=== PATIENT | female | born 1955 | race Caucasian/White ===

== ENCOUNTER 2021-08-26 10:52 | Inpatient (IN) | payer OTHER ==
--- NOTE | 2021-08-26 11:04 | ED ---
CPR HPI - General Stated Complaint: cardiac Time Seen by Provider: 08/26/21 10:52 Source: EMS, RN notes reviewed Mode of arrival: EMS - History of Present Illness Initial Comments: 66-year-old female with a history of alcoholism with associated stigmata is currently residing in a assisted who was found unresponsive and asystolic cardiac arrest. EMS was called she was found to be in asystole CPR and ACLS protocol was begun which included CPR including chest compressions total of 5 epinephrines with return of spontaneous circulation after approximately 25 minutes of effort. Patient was brought in priority one by EMS. No known history of cardiac disease. Patient does have a history of encephalopathy also. Patient presented unresponsive with a #[address] Currently stable pulse and blood pressures. Patient also was recently diagnosed with Covid 19 Complaint: found unresponsive - Related Data Home Medications Medication Instructions Recorded Confirmed Cyanocobalamin (Vitamin B-12) 1,000 mcg PO DAILY@0800 08/26/21 08/26/21 [Vitamin B-12] Docusate [Colace] 100 mg PO BID@0800,2000 08/26/21 08/26/21 Enoxaparin Sodium 30 mg SQ DAILY@0800 08/26/21 08/26/21 Folic Acid 1 mg PO DAILY@0700 08/26/21 08/26/21 Magnesium Oxide [Mag-Ox] 400 mg PO BID@0800,1600 08/26/21 08/26/21 Mighty Shakes 120 ml PO BID@1200,1400 08/26/21 08/26/21 Multivitamins, Thera [Multivitamin 1 tab PO DAILY@0808/26/21 08/26/21 (formulary)] Polyethylene Glycol 3350 [Miralax] 17 gm PO DAILY@0800 08/26/21 08/26/21 Thiamine [Vitamin B-1] 100 mg PO DAILY@0800 08/26/21 08/26/21 Allergies Allergy/AdvReac Type Severity Reaction Status Date / Time No Known Allergies Allergy Verified 08/26/21 11:17 Review of Systems ROS Statement: Those systems with pertinent positive or pertinent negative responses have been documented in the HPI. ROS Other: All systems not noted in ROS Statement are negative. Limitations: ROS unobtainable due to patients medical condition General Exam - General Exam Comments Initial Comments: Well-developed frail-appearing female unresponsive endotracheal tube in place with assisted ventilations. Limitations: altered mental status, physical limitation General appearance: other (Unresponsive) Head exam: Present: atraumatic Eye exam: Present: other (Pupils approximately 3 mm and sluggish) ENT exam: Present: other (October 06 oral tracheal tube in place) Neck exam: Present: other (Bilateral external jugular venous access noted no JVD or bruits) Respiratory exam: Present: decreased breath sounds, other (Anterior chest wall midsternal with skin slippages from CPR efforts.) Cardiovascular Exam: Present: regular rate, normal rhythm, normal heart sounds. Absent: systolic murmur, diastolic murmur, rubs, gallop, clicks GI/Abdominal exam: Present: soft, normal bowel sounds. Absent: distended, tenderness, guarding, rebound, rigid Rectal exam: Present: deferred Extremities exam: Present: other (And poor turgor wounds in the lower extremities) Course Vital Signs 08/26/21 08/26/21 08/26/21 10:54 11:31 11:43 Temperature 91.0 F L 90.5 F L Pulse Rate 89 71 74 Respiratory 16 16 16 Rate Blood Pressure 108/78 41/28 72/52 O2 Sat by Pulse 100 93 L Oximetry 08/26/21 08/26/21 08/26/21 12:18 12:35 12:45 Temperature 91 F L Pulse Rate 67 98 101 H Respiratory 16 16 16 Rate Blood Pressure 132/91 73/60 103/88 O2 Sat by Pulse 100 95 95 Oximetry - Reevaluation(s) Reevaluation #1: 08/26/21 13:11 I did discuss the events with the patient's family members or present at this time she will remain a full code advanced directives are unclear at this time. Medical Decision Making - Medical Decision Making Reevaluation the patient her blood pressure is improved after pressors started IV fluids given. CT appears be negative for acute processes x-ray shows evidence of aspiration. Case discussed with Dr. Davalos as well as Dr. Monge patient will be placed in the ICU doctor El[place] has been notified of the patient's admission and did review the EKG. At this time intervention not indicated initial troponin negative. - Lab Data Result diagrams: 08/26/21 11:09 08/26/21 11:09 Lab Results 08/26/21 08/26/21 08/26/21 Range/Units 11:09 11:09 11:09 WBC 4.4 (3.8-10.6) k/uL RBC 2.64 L (3.80-5.40) m/uL Hgb 9.6 L (11.4-16.0) gm/dL Hct 29.6 L (34.0-46.0) % MCV 112.3 H (80.0-100.0) fL MCH 36.3 H (25.0-35.0) pg MCHC 32.3 (31.0-37.0) g/dL RDW 13.5 (11.5-15.5) % Plt Count 88 L (150-450) k/uL MPV 12.8 Neutrophils % Not Reportable Neutrophils % (Manual) 57 % Band Neuts % (Manual) 17 % Lymphocytes % Not Reportable Lymphocytes % (Manual) 18 % Monocytes % Not Reportable Monocytes % (Manual) 4 % Eosinophils % Not Reportable Basophils % Not Reportable Metamyelocytes % 5 % Myelocytes % 1 % Neutrophils # Not Reportable Neutrophils # (Manual) 3.20 (1.3-7.7) k/uL Lymphocytes # Not Reportable Lymphocytes # (Manual) 0.79 L (1.0-4.8) k/uL Monocytes # Not Reportable Monocytes # (Manual) 0.18 (0-1.0) k/uL Eosinophils # Not Reportable Basophils # Not Reportable Metamyelocytes # (Man) 0.22 H (0) k/uL Myelocytes # (Manual) 0.04 H (0) k/uL Nucleated RBCs 0 (0-0) /100 WBC Manual Slide Review Performed Poikilocytosis (manual Present Macrocytosis Marked A Crenated Cell Present PT 12.1 H (9.0-12.0) sec INR 1.2 H (<1.2) APTT 47.1 H (22.0-30.0) sec Sodium 137 (137-145) mmol/L Potassium 3.2 L (3.5-5.1) mmol/L Chloride 107 (98-107) mmol/L Carbon Dioxide 18 L (22-30) mmol/L Anion Gap 12 mmol/L BUN 13 (7-17) mg/dL Creatinine 0.44 L (0.52-1.04) mg/dL Est GFR (CKD-EPI)AfAm >90 (>60 ml/min/1.73 sqM) Est GFR (CKD-EPI)NonAf >90 (>60 ml/min/1.73 sqM) Glucose 158 H (74-99) mg/dL Calcium 7.2 L (8.4-10.2) mg/dL Magnesium 1.8 (1.6-2.3) mg/dL Total Bilirubin 0.3 (0.2-1.3) mg/dL AST 91 H (14-36) U/L ALT 49 H (4-34) U/L Alkaline Phosphatase 192 H (38-126) U/L Creatine Kinase 121 (30-135) U/L Troponin I (0.000-0.034) ng/mL NT-Pro-B Natriuret Pep pg/mL Total Protein 3.3 L (6.3-8.2) g/dL Albumin 1.3 L (3.5-5.0) g/dL Lipase 59 (23-300) U/L Coronavirus (PCR) (Not Detectd) 08/26/21 08/26/21 08/26/21 Range/Units 11:09 11:09 11:55 WBC (3.8-10.6) k/uL RBC (3.80-5.40) m/uL Hgb (11.4-16.0) gm/dL Hct (34.0-46.0) % MCV (80.0-100.0) fL MCH (25.0-35.0) pg MCHC (31.0-37.0) g/dL RDW (11.5-15.5) % Plt Count (150-450) k/uL MPV Neutrophils % Neutrophils % (Manual) % Band Neuts % (Manual) % Lymphocytes % Lymphocytes % (Manual) % Monocytes % Monocytes % (Manual) % Eosinophils % Basophils % Metamyelocytes % % Myelocytes % % Neutrophils # Neutrophils # (Manual) (1.3-7.7) k/uL Lymphocytes # Lymphocytes # (Manual) (1.0-4.8) k/uL Monocytes # Monocytes # (Manual) (0-1.0) k/uL Eosinophils # Basophils # Metamyelocytes # (Man) (0) k/uL Myelocytes # (Manual) (0) k/uL Nucleated RBCs (0-0) /100 WBC Manual Slide Review Poikilocytosis (manual Macrocytosis Crenated Cell PT (9.0-12.0) sec INR (<1.2) APTT (22.0-30.0) sec Sodium (137-145) mmol/L Potassium (3.5-5.1) mmol/L Chloride (98-107) mmol/L Carbon Dioxide (22-30) mmol/L Anion Gap mmol/L BUN (7-17) mg/dL Creatinine (0.52-1.04) mg/dL Est GFR (CKD-EPI)AfAm (>60 ml/min/1.73 sqM) Est GFR (CKD-EPI)NonAf (>60 ml/min/1.73 sqM) Glucose (74-99) mg/dL Calcium (8.4-10.2) mg/dL Magnesium (1.6-2.3) mg/dL Total Bilirubin (0.2-1.3) mg/dL AST (14-36) U/L ALT (4-34) U/L Alkaline Phosphatase (38-126) U/L Creatine Kinase (30-135) U/L Troponin I <0.012 (0.000-0.034) ng/mL NT-Pro-B Natriuret Pep 1110 pg/mL Total Protein (6.3-8.2) g/dL Albumin (3.5-5.0) g/dL Lipase (23-300) U/L Coronavirus (PCR) Detected A (Not Detectd) - Radiology Data Radiology results: report reviewed (UG shows evidence of aspiration please see complete report), image reviewed Critical Care Time Critical Care Time: Yes Total Critical Care Time: 44 Critical Care Time: Critical care time includes initial presentation with history physical x-rays multiple reevaluation the patient discussed with paramedics on arrival discussion with the admitting physician discussed with cardiology discussion with critical care medicine. Documentation the above admission orders. Disposition Clinical Impression: Cardiac arrest, Signs of return of spontaneous circulation, SARS-CoV-2 positive, Aspiration pneumonitis, Hypotensive episode, Hypokalemia, Encephalopathy acute, Respiratory failure Disposition: ADMITTED IP TO THIS HOSP Condition: Critical Referrals: Danny Dominique MD [Primary Care Provider] - 1-2 days
[2021-08-26 11:33] LABS: AST 91 U/L (14-36); African American GFR (CKD) >90 (>60 ml/min/1.73 sqM); Albumin 1.3 g/dL (3.5-5.0); Alkaline Phosphatase 192 U/L (38-126); Anion Gap 12 mmol/L; Blood Urea Nitrogen 13 mg/dL (7-17); Calcium 7.2 mg/dL (8.4-10.2); Carbon Dioxide 18 mmol/L (22-30); Chloride 107 mmol/L (98-107); Creatine Kinase 121 U/L (30-135); Glucose 158 mg/dL (74-99); Lipase 59 U/L (23-300); Magnesium 1.8 mg/dL (1.6-2.3); Non-African American GFR(CKD) >90 (>60 ml/min/1.73 sqM); Potassium 3.2 mmol/L (3.5-5.1); Sodium 137 mmol/L (137-145); Total Bilirubin 0.3 mg/dL (0.2-1.3); Total Protein 3.3 g/dL (6.3-8.2)
[2021-08-26] MEDS ORDERED: SODIUM CHLORIDE 0.9% 1,000 ML IV STA ×2 (11:35→11:41)
[2021-08-26 11:40] LABS: ALT 49 U/L (4-34)
[2021-08-26] MEDS: NOREPINEPHRINE 4 MG in SODIUM CHLORIDE 0.9% 250 ML IV ONE ×3 (11:40→16:30)
[2021-08-26 11:52] LABS: HCT 29.6 % (34.0-46.0); HGB 9.6 gm/dL (11.4-16.0); MCH 36.3 pg (25.0-35.0); MCHC 32.3 g/dL (31.0-37.0); MCV 112.3 fL (80.0-100.0); Macrocytosis Marked; Mean Platelet Volume 12.8; RBC 2.64 m/uL (3.80-5.40); RDW 13.5 % (11.5-15.5); WBC 4.4 k/uL (3.8-10.6)
[2021-08-26 12:17] LABS: INR 1.2 (<1.2); Partial Thromboplastin Time 47.1 sec (22.0-30.0); Prothrombin Time 12.1 sec (9.0-12.0)
[2021-08-26 12:25] LABS: Platelet Count 88 k/uL (150-450)
[2021-08-26 12:30] LABS: Band Neutrophils % 17 %; Lymphocytes # (M) 0.79 k/uL (1.0-4.8); Metamyelocytes # (M) 0.22 k/uL (0); Metamyelocytes % 5 %; Monocytes # (M) 0.18 k/uL (0-1.0); Myelocytes # (M) 0.04 k/uL (0); Myelocytes % 1 %; Neutrophils % (M) 57 %; Nucleated Red Blood Cells 0 /100 WBC (0-0); Poikilocytosis (M) Present; Total Cells Counted 200
[2021-08-26 12:31] LABS: Crenated RBC Present
--- NOTE | 2021-08-26 12:31 | CT ---
EXAMINATION TYPE: CT brain wo con DATE OF EXAM: 08/26/2021 COMPARISON: None HISTORY: Patient intubated after cardiac arrest. CT DLP: 1129.[address] of the brain was performed. The ventricles, basal cisterns and sulci overlying the cerebral convexities demonstrate mild enlargem ent. There is no evidence for intracranial hemorrhage or sulcal effacement. There is decreased attenuation about the periventricular white matter and deep white matter of both c erebral hemispheres, compatible with chronic small vessel ischemia. Differential diagnosis does inclu de demyelination. No mass effects are seen.No midline shift. Osseous calvarium is intact. Mucosal thickening left maxillary sinus. If symptoms persist consider MRI. IMPRESSION: 1. Age related atrophic and chronic small vessel ischemic change without acute intracranial process s een at this time.
--- NOTE | 2021-08-26 12:53 | XR ---
EXAMINATION TYPE: XR chest 1V portable DATE OF EXAM: 08/26/2021 Comparison: None Clinical History: 46-year-old female with chest pain FINDINGS: ET tube tip low approaching the right main stem bronchus, 1.6 cm from the sharda. Pull back 4 cm and reassess at follow-up. NG tube courses below the diaphragm. There is a moderate-sized left pneumothorax measuring 1.3 cm at the apex, 1.6 cm laterally, and at least 5 cm at the base. The medial component is also seen measurin g 5 mm. Patchy opacities minimal or lungs with suspected small pleural effusions. Impression: 0. The ET tube is approaching the right main stem bronchus. Pull back 4 cm and reassess at follow-up. 1. Left-sided hydropneumothorax. The pneumothorax is moderate in size, estimated at 30% (the basilar component is larger than the apical component). 2. COPD. 3. Mid and lower lung airspace disease and a small right effusion as well. Correlate for CHF versus i nfectious/aspiration pneumonias.
[2021-08-26] MEDS ORDERED: NALOXONE 0.4 MG/ML 1 ML VIAL IV PRN (13:11)
--- NOTE | 2021-08-26 13:25 | ED ---
Medical Decision Making - Medical Decision Making Chest x-ray reviewed evidence of pneumothorax in the left increased infiltrate could represent also pulmonary edema. - Lab Data Result diagrams: 08/26/21 11:09 08/26/21 11:09 Lab Results 08/26/21 08/26/21 08/26/21 Range/Units 11:09 11:09 11:09 WBC 4.4 (3.8-10.6) k/uL RBC 2.64 L (3.80-5.40) m/uL Hgb 9.6 L (11.4-16.0) gm/dL Hct 29.6 L (34.0-46.0) % MCV 112.3 H (80.0-100.0) fL MCH 36.3 H (25.0-35.0) pg MCHC 32.3 (31.0-37.0) g/dL RDW 13.5 (11.5-15.5) % Plt Count 88 L (150-450) k/uL MPV 12.8 Neutrophils % Not Reportable Neutrophils % (Manual) 57 % Band Neuts % (Manual) 17 % Lymphocytes % Not Reportable Lymphocytes % (Manual) 18 % Monocytes % Not Reportable Monocytes % (Manual) 4 % Eosinophils % Not Reportable Basophils % Not Reportable Metamyelocytes % 5 % Myelocytes % 1 % Neutrophils # Not Reportable Neutrophils # (Manual) 3.20 (1.3-7.7) k/uL Lymphocytes # Not Reportable Lymphocytes # (Manual) 0.79 L (1.0-4.8) k/uL Monocytes # Not Reportable Monocytes # (Manual) 0.18 (0-1.0) k/uL Eosinophils # Not Reportable Basophils # Not Reportable Metamyelocytes # (Man) 0.22 H (0) k/uL Myelocytes # (Manual) 0.04 H (0) k/uL Nucleated RBCs 0 (0-0) /100 WBC Manual Slide Review Performed Poikilocytosis (manual Present Macrocytosis Marked A Crenated Cell Present PT 12.1 H (9.0-12.0) sec INR 1.2 H (<1.2) APTT 47.1 H (22.0-30.0) sec Sodium 137 (137-145) mmol/L Potassium 3.2 L (3.5-5.1) mmol/L Chloride 107 (98-107) mmol/L Carbon Dioxide 18 L (22-30) mmol/L Anion Gap 12 mmol/L BUN 13 (7-17) mg/dL Creatinine 0.44 L (0.52-1.04) mg/dL Est GFR (CKD-EPI)AfAm >90 (>60 ml/min/1.73 sqM) Est GFR (CKD-EPI)NonAf >90 (>60 ml/min/1.73 sqM) Glucose 158 H (74-99) mg/dL Calcium 7.2 L (8.4-10.2) mg/dL Magnesium 1.8 (1.6-2.3) mg/dL Total Bilirubin 0.3 (0.2-1.3) mg/dL AST 91 H (14-36) U/L ALT 49 H (4-34) U/L Alkaline Phosphatase 192 H (38-126) U/L Creatine Kinase 121 (30-135) U/L Troponin I (0.000-0.034) ng/mL NT-Pro-B Natriuret Pep pg/mL Total Protein 3.3 L (6.3-8.2) g/dL Albumin 1.3 L (3.5-5.0) g/dL Lipase 59 (23-300) U/L Coronavirus (PCR) (Not Detectd) 08/26/21 08/26/21 08/26/21 Range/Units 11:09 11:09 11:55 WBC (3.8-10.6) k/uL RBC (3.80-5.40) m/uL Hgb (11.4-16.0) gm/dL Hct (34.0-46.0) % MCV (80.0-100.0) fL MCH (25.0-35.0) pg MCHC (31.0-37.0) g/dL RDW (11.5-15.5) % Plt Count (150-450) k/uL MPV Neutrophils % Neutrophils % (Manual) % Band Neuts % (Manual) % Lymphocytes % Lymphocytes % (Manual) % Monocytes % Monocytes % (Manual) % Eosinophils % Basophils % Metamyelocytes % % Myelocytes % % Neutrophils # Neutrophils # (Manual) (1.3-7.7) k/uL Lymphocytes # Lymphocytes # (Manual) (1.0-4.8) k/uL Monocytes # Monocytes # (Manual) (0-1.0) k/uL Eosinophils # Basophils # Metamyelocytes # (Man) (0) k/uL Myelocytes # (Manual) (0) k/uL Nucleated RBCs (0-0) /100 WBC Manual Slide Review Poikilocytosis (manual Macrocytosis Crenated Cell PT (9.0-12.0) sec INR (<1.2) APTT (22.0-30.0) sec Sodium (137-145) mmol/L Potassium (3.5-5.1) mmol/L Chloride (98-107) mmol/L Carbon Dioxide (22-30) mmol/L Anion Gap mmol/L BUN (7-17) mg/dL Creatinine (0.52-1.04) mg/dL Est GFR (CKD-EPI)AfAm (>60 ml/min/1.73 sqM) Est GFR (CKD-EPI)NonAf (>60 ml/min/1.73 sqM) Glucose (74-99) mg/dL Calcium (8.4-10.2) mg/dL Magnesium (1.6-2.3) mg/dL Total Bilirubin (0.2-1.3) mg/dL AST (14-36) U/L ALT (4-34) U/L Alkaline Phosphatase (38-126) U/L Creatine Kinase (30-135) U/L Troponin I <0.012 (0.000-0.034) ng/mL NT-Pro-B Natriuret Pep 1110 pg/mL Total Protein (6.3-8.2) g/dL Albumin (3.5-5.0) g/dL Lipase (23-300) U/L Coronavirus (PCR) Detected A (Not Detectd) Disposition Clinical Impression: Cardiac arrest, Signs of return of spontaneous circulation, SARS-CoV-2 positive, Aspiration pneumonitis, Hypotensive episode, Hypokalemia, Encephalopathy acute, Respiratory failure Disposition: ADMITTED IP TO THIS HOSP Condition: Critical
[2021-08-26] MEDS ORDERED: SODIUM CHLORIDE 0.9% 1,000 ML IV SCH (13:30)
--- NOTE | 2021-08-26 13:56 | P.CRDCN ---
History of Present Illness Consult date: 08/26/21 History of present illness: HISTORY OF PRESENT ILLNESS: This is a 66 year old female with a past medical history significant for alcohol abuse, pancreatitis, pressure ulcers, and Covid in 07/2021. 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 We have been asked to see the patient in consultation for cardiac arrest. Patient examined at the bedside in the ER. Patient was brought to [facility] due to cardiac arrest. Patient resides at a senior care and was apparently found unresponsive. Patient was found to be in asystole. CPR was initiated with ROSC after 25 minutes (per ER physician documentation). Patient was intubated by EMS. She remains unresponsive at this time. Patient is currently hypothermic with a temperature of 98.5F. Patient is also hypotensive. She is receiving IV fluid boluses. She was started on norepinephrine by the emergency room physician. EKG reveals sinus mechanism with low voltage QRS. No ST elevation noted. Chest xray: not available at the time of dictation Laboratory data: WBC 4.4. Hemoglobin 9.6. Sodium 137. Potassium 3.2. BUN 13. Creatinine 0.44. Magnesium 1.8. AST 91. ALT 49. Troponin negative 1. ProBNP 1110. Current home cardiac medications include none REVIEW OF SYSTEMS: At the time of my exam: Unable to obtain thorough review of systems secondary to mechanical ventilation PHYSICAL EXAM: VITAL SIGNS: Reviewed. GENERAL: Well-developed in no acute distress. HEENT: Head is normocephalic. Sclerae anicteric. Mucous membranes of the mouth are moist. Neck supple. No JVD or thyromegaly LUNGS: Respirations even and unlabored-on mechanical ventilation. Lungs diminished to auscultation bilaterally. HEART: Regular rate and rhythm. S1 and S2 heard. ABDOMEN: Soft. Nondistended. EXTREMITIES: No clubbing or cyanosis. Peripheral pulses intact. No lower extremity edema NEUROLOGIC: Unresponsive ASSESSMENT: Cardiac arrest Acute hypoxic respiratory failure requiring mechanical ventilation Covid 19 Hypokalemia Mildly elevated LFTs History of encephalopathy History of alcohol abuse History of pancreatitis PLAN: Obtain 2D echo to assess cardiac structure and function Continue supportive management No plans for invasive cardiac procedures at this time Further recommendations pending patient course Nurse practitioner note has been reviewed by physician. Signing provider agrees with the documented findings, assessment, and plan of care. Past Medical History Past Medical History: Liver Disease Additional Past Medical History / Comment(s): ETOH, COVID 08/01/21, METABOLIC ENCEPHALOPATHY, CHRONIC PANCREATITIS, PVD, PRESSURE UCLER TO LEFT/RIGHT COCCYX. History of Any Multi-Drug Resistant Organisms: None Reported Past Surgical History: Unable to Obtain Smoking Status: Former smoker Past Alcohol Use History: Heavy Past Drug Use History: None Reported Medications and Allergies Home Medications Medication Instructions Recorded Confirmed Type Cyanocobalamin (Vitamin B-12) 1,000 mcg PO DAILY@0800 08/26/21 08/26/21 History [Vitamin B-12] Docusate [Colace] 100 mg PO BID@0800,199908/26/21 08/26/21 History Enoxaparin Sodium 30 mg SQ DAILY@79908/26/21 08/26/21 History Folic Acid 1 mg PO DAILY@0708/26/21 08/26/21 History Magnesium Oxide [Mag-Ox] 400 mg PO BID@0800,1600 08/26/21 08/26/21 History Mighty Shakes 120 ml PO BID@1200,1400 08/26/21 08/26/21 History Multivitamins, Thera [Multivitamin 1 tab PO DAILY@0808/26/21 08/26/21 History (formulary)] Polyethylene Glycol 3350 [Miralax] 17 gm PO DAILY@0808/26/21 08/26/21 History Thiamine [Vitamin B-1] 100 mg PO DAILY@0808/26/21 08/26/21 History Allergies Allergy/AdvReac Type Severity Reaction Status Date / Time No Known Allergies Allergy Verified 08/26/21 11:17 Physical Exam Vitals: Vital Signs Temp Pulse Resp BP Pulse Ox 08/26/21 11:43 90.5 F L 74 16 72/52 90 L 08/26/21 11:31 91.0 F L 71 16 08/26/21 10:54 89 16 108/78 100 Intake and Output 08/25/21 08/26/21 08/26/21 22:59 06:59 14:59 Intake Total 1.728 Balance 1.728 Intake: Intake, IV Titration 1.728 Amount Norepinephrine 4 mg In 1.728 Sodium Chloride 0.9% 250 ml @ 0.05 MCG/KG/MIN 12. 961 mls/hr IV .[id number] ONE Rx#:[id number] Other: Weight 68.039 kg Results 08/26/21 11:09 08/26/21 11:09 Cardiac Enzymes 08/26/21 Range/Units 11:09 AST 91 H (14-36) U/L Comprehensive Metabolic Panel 08/26/21 Range/Units 11:09 Sodium 137 (137-145) mmol/L Potassium 3.2 L (3.5-5.1) mmol/L Chloride 107 (98-107) mmol/L Carbon Dioxide 18 L (22-30) mmol/L BUN 13 (7-17) mg/dL Creatinine 0.44 L (0.52-1.04) mg/dL Glucose 158 H (74-99) mg/dL Calcium 7.2 L (8.4-10.2) mg/dL AST 91 H (14-36) U/L ALT 49 H (4-34) U/L Alkaline Phosphatase 192 H (38-126) U/L Total Protein 3.3 L (6.3-8.2) g/dL Albumin 1.3 L (3.5-5.0) g/dL Current Medications Generic Name Dose Route Start Last Admin Trade Name Freq PRN Reason Stop Dose Admin Propofol 1,000 mg/ IV Solution 100 mls @ 4.082 mls/hr 08/26/21 11:00 IV .Q24H AZAR Protocol 10 MCG/KG/MIN Sodium Chloride 1,000 mls @ 999 mls/hr 08/26/21 11:35 08/26/21 11:36 Saline 0.9% IV 08/26/21 12:35 999 mls/hr .Q1H1M STA Administration Norepinephrine Bitartrate 4 mg 254 mls @ 12.961 mls/hr 08/26/21 11:38 08/26/21 11:48 / Sodium Chloride IV 08/27/21 07:13 0.5 mcg/kg/min .[id number] ONE 129.614 mls/hr Titration Protocol 0.05 MCG/KG/MIN Sodium Chloride 1,000 mls @ 999 mls/hr 08/26/21 11:41 08/26/21 11:40 Saline 0.9% IV 08/26/21 12:41 999 mls/hr .Q1H1M STA Administration Intake and Output 08/25/21 08/26/21 08/26/21 22:59 06:59 14:59 Intake Total 1.728 Balance 1.728 Intake: Intake, IV Titration 1.728 Amount Norepinephrine 4 mg In 1.728 Sodium Chloride 0.9% 250 ml @ 0.05 MCG/KG/MIN 12. 961 mls/hr IV .[id number] ONE Rx#:[id number] Other: Weight 68.039 kg Patient Weight 08/27/21 06:59 Weight 68.039 kg 08/26/21 11:09
[2021-08-26] MEDS ORDERED: SODIUM CHLORIDE 0.9% 1,000 ML IV ONE ×2 (14:04→14:07)
[2021-08-26] MEDS ORDERED: ACETAMINOPHEN SUPPOSITORY 650 MG SUPP RECTAL PRN (14:08)
--- NOTE | 2021-08-26 14:11 | P.CNPUL ---
History of Present Illness Consult date: 08/26/21 Chief complaint: Cardiac arrests History of present illness: 66-year-old female patient who has been having a very poor health condition. The patient had a fall and she was admitted to [facility] approximately a month ago. Following that she was sent to medical [place] of syncope where she was undergoing rehabilitation. The patient apparently was doing poorly. The patient had a very poor performance status, debilitated, unable to walk or perform activities of daily today life. She is a chronic alcoholic. The patient has chronic alcoholic liver disease, ascites, chronic lower extremity edema, chronic wounds in a upper and lower extremities with areas of ecchymosis, in addition to that, the patient had history of encepha lopathy that was considered to be related to chronic liver disease, hepatitic encephalopathy, in addition to pressure ulcers involving the sacrum stage II, right buttocks, stage II, and pressure ulcer on the left buttocks, stage II. Patient has had ulcerations or peripheral vascular disease, chronic pain, and neuralgia. The patient was found acutely unresponsive and cardiac arrest. Apparently she was in asystole. She was found lying that at the long term. EMS was called to the scene. The patient received CPR for a total of 25 minutes and she had a tetanus with his circulation. She was brought into our emergency department. At this point in time, the patient was found to be hypothermic. She was hypotensive. She was started on norepinephrine infusion running at 0.8 mcg/kg per minute. She was started on IV fluids. Most recent systolic blood pressures the mid 70s. Her cardiac rhythm is sinus. EKG is not showing any acute ST segment elevations or depressions. She is on a mechanical ventilator. I put her on the rate of 24 with a tidal volume of 375 and FiO2 of 100% with a PEEP of 5. She is extensively bronchospastic and wheezy. Peak airway pressures around 44. Blood work shows a white cell count of 4.4 with hemoglobin of 9.6 and a platelet count of 88. Cognition profile showed an INR of 1.2 with a PT of 12.1 and a PTT of 47. The patient had the renal function with a creatinine of 0.4. Sodium is 137. Potassium was at 3.2. The LFTs were abnormal with AST of 91, ALT of 49, alkaline phosphatase of 192. Troponin was negative. She checked positive for COVID-19 and this is a new diagnosis. Chest x-ray showed a left- sided pneumothorax and there is evidence of acute pulmonary edema. ET tube is in a good location. The patient is completely unresponsive. She has not taken any sedation. She is not withdrawing to painful stimulation. Pupils are round to 3 mm, nonreactive to light. She has no cough or gag and she is riding the respirator. Reflexes are diminished in all 4 extremities. Review of Systems ROS unobtainable: due to mental status Past Medical History Past Medical History: Liver Disease Additional Past Medical History / Comment(s): ETOH, COVID 08/26/21, METABOLIC ENCEPHALOPATHY, CHRONIC PANCREATITIS, PVD, PRESSURE UCLER TO LEFT/RIGHT COCCYX. History of Any Multi-Drug Resistant Organisms: None Reported Past Surgical History: Unable to Obtain Smoking Status: Former smoker Past Alcohol Use History: Heavy Past Drug Use History: None Reported Medications and Allergies Home Medications Medication Instructions Recorded Confirmed Type Cyanocobalamin (Vitamin B-12) 1,000 mcg PO DAILY@0800 08/26/21 08/26/21 History [Vitamin B-12] Docusate [Colace] 100 mg PO BID@0800,2000 08/26/21 08/26/21 History Enoxaparin Sodium 30 mg SQ DAILY@0808/26/21 08/26/21 History Folic Acid 1 mg PO DAILY@0700 08/26/21 08/26/21 History Magnesium Oxide [Mag-Ox] 400 mg PO BID@0800,1600 08/26/21 08/26/21 History Mighty Shakes 120 ml PO BID@1200,1400 08/26/21 08/26/21 History Multivitamins, Thera [Multivitamin 1 tab PO DAILY@0808/26/21 08/26/21 History (formulary)] Polyethylene Glycol 3350 [Miralax] 17 gm PO DAILY@0800 08/26/21 08/26/21 History Thiamine [Vitamin B-1] 100 mg PO DAILY@0800 08/26/21 08/26/21 History Allergies Allergy/AdvReac Type Severity Reaction Status Date / Time No Known Allergies Allergy Verified 08/26/21 11:17 Physical Exam Vitals: Vital Signs Temp Pulse Resp BP Pulse Ox 08/26/21 13:29 100 16 96/75 08/26/21 12:45 101 H 16 103/88 95 08/26/21 12:35 98 16 73/60 95 08/26/21 12:18 91 F L 67 16 132/91 100 08/26/21 11:43 90.5 F L 74 16 72/52 93 L 08/26/21 11:31 91.0 F L 71 16 41/28 08/26/21 10:54 89 16 108/78 100 Intake and Output 08/25/21 08/26/21 08/26/21 22:59 06:59 14:59 Intake Total 254.000 Balance 254.000 Intake: Intake, IV Titration 254.000 Amount Norepinephrine 4 mg In 254.000 Sodium Chloride 0.9% 250 ml @ 0.05 MCG/KG/MIN 12. 961 mls/hr IV .[id number] ONE Rx#:[id number] Other: Weight 68.039 kg Patient is currently intubated on a mechanical ventilator, comatose and unresponsive, looks extremely emaciated, malnourished, and she has extensive ecchymotic areas throughout her body bilaterally and the patient also has areas of skin sloughing over the chest and lower extremities bilaterally. She is not responsive at all to verbal or painful stimulation. Head exam was generally normal. There was no scleral icterus or corneal arcus. Mucous membranes were moist. Neck was supple and without jugular venous distension, thyromegaly, or carotid bruits. Carotids were easily palpable bilaterally. There was no adenopathy. Lungs sounds are diminished the patient is diffuse expiratory wheezes throughout the lung his bilaterally Cardiac exam revealed the PMI to be normally situated and sized. The rhythm was regular and no extrasystoles were noted during several minutes of auscultation. The first and second heart sounds were normal and physiologic splitting of the second heart sound was noted. There were no murmurs, rubs, clicks, or gallops. Abdomen is distended and there is positive ascites. There is shifting dullness. No direct tenderness. No rebound tenderness or guarding. Extremities are consistent with extensive edema bilaterally along with marked diminished pulses in lower extremities and areas of wounds and face to pressure ulceration throughout the sacral and right buttocks area. Meanwhile, there is skin sloughing of the skin in lower extremities bilaterally. Neurologically, responsive, no cough, no gag, he was around 2 mm in size, n onreactive to light, negative oculocephalic reflex, egg active motor function, negative sensory functions, cold calorics of the abdomen obtained. Gait cannot be assessed. Reflexes are diminished in all 4 extremities. Results - Laboratory Findings CBC and BMP: 08/26/21 11:09 08/26/21 11:09 PT/INR, D-dimer PT 12.1 sec (9.0-12.0) H 08/26/21 11:09 INR 1.2 (<1.2) H 08/26/21 11:09 D-Dimer 28.33 mg/L FEU (<0.60) H 08/26/21 11:09 Abnormal lab findings: Abnormal Labs 08/26/21 08/26/21 08/26/21 11:09 11:09 11:09 RBC 2.64 L Hgb 9.6 L Hct 29.6 L MCV 112.3 H MCH 36.3 H Plt Count 88 L Lymphocytes # (Manual) 0.79 L Metamyelocytes # (Man) 0.22 H Myelocytes # (Manual) 0.04 H Macrocytosis Marked A PT 12.1 H INR 1.2 H APTT 47.1 H D-Dimer Potassium 3.2 L Carbon Dioxide 18 L Creatinine 0.44 L Glucose 158 H Calcium 7.2 L AST 91 H ALT 49 H Alkaline Phosphatase 192 H Total Protein 3.3 L Albumin 1.3 L Coronavirus (PCR) 08/26/21 08/26/21 11:09 11:55 RBC Hgb Hct MCV MCH Plt Count Lymphocytes # (Manual) Metamyelocytes # (Man) Myelocytes # (Manual) Macrocytosis PT INR APTT D-Dimer 28.33 H Potassium Carbon Dioxide Creatinine Glucose Calcium AST ALT Alkaline Phosphatase Total Protein Albumin Coronavirus (PCR) Detected A - Diagnostic Findings Chest x-ray: image reviewed Assessment and Plan Plan: 1 acute cardiac arrest, estimated down time of around 25 minutes with return of 20 circulation. Currently hypotensive on pressors with norepinephrine infusion running at 0.8 mcg/kg per minute. 2 unresponsive, comatose, consider anoxic encephalopathy along with a component of hepatic encephalopathy as the patient has signs of chronic liver failure secondary to alcoholism 3 acute hypoxic respiratory failure secondary to above, currently intubated on a mechanical ventilator, awaiting a blood gas 4 left-sided pneumothorax, could be related to CPR/positive pressure bag ventilation. Could be related also to COVID-19 infection 5 COVID-19 infection/pneumonia 6 diffuse breath and pulmonary infiltrates. Consider COVID-19 related pneumonia versus pulmonary edema 7 alcoholic liver cirrhosis 8 ascites 9 history of hepatitic encephalopathy 10 coagulopathy, secondary to liver failure 11 thrombocytopenia, secondary to liver failure 12 skin ulcerations throughout the body, involving lower extremities and the chest with skin sloughing and areas of pressure ulcer stage II and the sacral in the right buttock area 13 severe peripheral vascular disease 14 COPD 15 very intolerant performance and functional status secondary to above- mentioned comorbidities. She was a long term resident with history of falls Plan Transfer this patient to the ICU We are the process of discussing with the family. The patient carries an extremity high mortality because of the above-mentioned comorbidities. She is changed to a DNR/DNI CODE STATUS. While, may even consider the possibility of end-of-life care based on her current status and comorbidities. Continue IV fluids and give another liter of bolus and maintaining her on a normal state rate of 150 mL an hour Continue pressors ABGs and incentive ventilator changes will be done DuoNeb nebulized treatments around the clock Chest tube insertion may be needed if ongoing treatment is requested by family Started patient on Decadron 6 mg IV every 24 hours Hold anticoagulation for now especially with underlying coagulopathy and thrombocytopenia CAT scan of the brain was noted Check ammonia level No sedation for now and assess patient's mental status Neurology consultation Echocardiogram Wound care IV Zosyn as an empiric antibiotic coverage IV Protonix Transferred to the ICU. We'll continue to follow. Family is at the bedside. We'll make final decisions regarding goals of care. Time with Patient: Greater than 30
[2021-08-26] MEDS ORDERED: DEXAMETHASONE SOD PHOSPHATE 10 MG/ML 1 ML VIAL IV SCH (14:15)
--- NOTE | 2021-08-26 14:25 | P.HPIM ---
History of Present Illness H&P Date: 08/26/21 This is a 66-year-old female with a very complex past medical history significant for heavy alcohol abuse, chronic tobacco use, and underlying chronic pancreatitis and presented to the emergency room intubated after she was found unresponsive at the custodial and underwent CPR by EMS for approximately 25 minute prior to ROSC. Per report, patient was in asystole. Her family at bedside. Patient was hypothermic on presentation with a temperature of 90.5. He was also hypotensive requiring norepinephrine. She tested positive for COVID-19. Patient was seen and examined by me in the ER. She is sedated and intubated. She appears a lot older than her age. She had skin sloughing/laceration at the site of chest compression on her sternum. She appears to be bruised all over in particular in 4 extremities. She also has some ascites. Bilateral pitting edema up to the knee. Review of Systems Unable to review other systems Past Medical History Past Medical History: Liver Disease Additional Past Medical History / Comment(s): ETOH, COVID 08/26/21, METABOLIC ENCEPHALOPATHY, CHRONIC PANCREATITIS, PVD, PRESSURE UCLER TO LEFT/RIGHT COCCYX. History of Any Multi-Drug Resistant Organisms: None Reported Past Surgical History: Unable to Obtain Smoking Status: Former smoker Past Alcohol Use History: Heavy Past Drug Use History: None Reported Medications and Allergies Home Medications Medication Instructions Recorded Confirmed Type Cyanocobalamin (Vitamin B-12) 1,000 mcg PO DAILY@0800 08/26/21 08/26/21 History [Vitamin B-12] Docusate [Colace] 100 mg PO BID@0800,199908/26/21 08/26/21 History Enoxaparin Sodium 30 mg SQ DAILY@0808/26/21 08/26/21 History Folic Acid 1 mg PO DAILY@0700 08/26/21 08/26/21 History Magnesium Oxide [Mag-Ox] 400 mg PO BID@0800,1600 08/26/21 08/26/21 History Mighty Shakes 120 ml PO BID@1200,1400 08/26/21 08/26/21 History Multivitamins, Thera [Multivitamin 1 tab PO DAILY@0800 08/26/21 08/26/21 History (formulary)] Polyethylene Glycol 3350 [Miralax] 17 gm PO DAILY@0800 08/26/21 09/28/21 History Thiamine [Vitamin B-1] 100 mg PO DAILY@79908/26/21 08/26/21 History Allergies Allergy/AdvReac Type Severity Reaction Status Date / Time No Known Allergies Allergy Verified 08/26/21 11:17 Physical Exam Vitals: Vital Signs Temp Pulse Resp BP Pulse Ox 08/26/21 14:07 80 25 H 119/98 08/26/21 13:50 97 16 67/52 08/26/21 13:29 100 16 96/75 08/26/21 12:45 101 H 16 103/88 95 08/26/21 12:35 98 16 73/60 95 08/26/21 12:18 91 F L 67 16 132/91 100 08/26/21 11:43 90.5 F L 74 16 72/52 93 L 08/26/21 11:31 91.0 F L 71 16 41/28 08/26/21 10:54 89 16 108/78 100 Intake and Output 08/25/21 08/26/21 08/26/21 22:59 06:59 14:59 Intake Total 254.000 Balance 254.000 Intake: Intake, IV Titration 254.000 Amount Norepinephrine 4 mg In 254.000 Sodium Chloride 0.9% 250 ml @ 0.05 MCG/KG/MIN 12. 961 mls/hr IV .[id number] ONE Rx#:[id number] Other: Weight 68.039 kg General: The patient is sedated and intubated Eye: there is normal conjunctiva bilaterally. Neck: The neck is supple, there is no JVD. Cardiovascular: Normal S1-S2, no S3-S4, no murmurs. Respiratory: Lungs with mechanical ventilator sounds Gastrointestinal: Abdomen is distended with evidence of ascites Musculoskeletal: There is +2-3 pedal edema. Skin: Skin is warm and dry Results CBC & Chem 7: 08/26/21 11:09 08/26/21 11:09 Labs: Abnormal Lab Results - Last 24 Hours (Table) 08/26/21 08/26/21 08/26/21 Range/Units 11:09 11:09 11:09 RBC 2.64 L (3.80-5.40) m/uL Hgb 9.6 L (11.4-16.0) gm/dL Hct 29.6 L (34.0-46.0) % MCV 112.3 H (80.0-100.0) fL MCH 36.3 H (25.0-35.0) pg Plt Count 88 L (150-450) k/uL Lymphocytes # (Manual) 0.79 L (1.0-4.8) k/uL Metamyelocytes # (Man) 0.22 H (0) k/uL Myelocytes # (Manual) 0.04 H (0) k/uL Macrocytosis Marked A PT 12.1 H (9.0-12.0) sec INR 1.2 H (<1.2) APTT 47.1 H (22.0-30.0) sec D-Dimer (<0.60) mg/L FEU Potassium 3.2 L (3.5-5.1) mmol/L Carbon Dioxide 18 L (22-30) mmol/L Creatinine 0.44 L (0.52-1.04) mg/dL Glucose 158 H (74-99) mg/dL Calcium 7.2 L (8.4-10.2) mg/dL AST 91 H (14-36) U/L ALT 49 H (4-34) U/L Alkaline Phosphatase 192 H (38-126) U/L Total Protein 3.3 L (6.3-8.2) g/dL Albumin 1.3 L (3.5-5.0) g/dL Coronavirus (PCR) (Not Detectd) 08/26/21 08/26/21 Range/Units 11:09 11:55 RBC (3.80-5.40) m/uL Hgb (11.4-16.0) gm/dL Hct (34.0-46.0) % MCV (80.0-100.0) fL MCH (25.0-35.0) pg Plt Count (150-450) k/uL Lymphocytes # (Manual) (1.0-4.8) k/uL Metamyelocytes # (Man) (0) k/uL Myelocytes # (Manual) (0) k/uL Macrocytosis PT (9.0-12.0) sec INR (<1.2) APTT (22.0-30.0) sec D-Dimer 28.33 H (<0.60) mg/L FEU Potassium (3.5-5.1) mmol/L Carbon Dioxide (22-30) mmol/L Creatinine (0.52-1.04) mg/dL Glucose (74-99) mg/dL Calcium (8.4-10.2) mg/dL AST (14-36) U/L ALT (4-34) U/L Alkaline Phosphatase (38-126) U/L Total Protein (6.3-8.2) g/dL Albumin (3.5-5.0) g/dL Coronavirus (PCR) Detected A (Not Detectd) Assessment and Plan Assessment: 1. Cardiac arrest with 25 minute downtime till ROSC 2. Severe sepsis with septic shock requiring norepinephrine 3. COVID-19 pneumonia 4. Acute hypoxic respiratory failure requiring intubation and mechanical ventilation 5. Hypokalemia 6. Suspected underlying alcoholic liver cirrhosis 7. Moderate to large ascites 8. Thrombocytopenia, probably secondary to alcoholism 9. CODE STATUS, patient is DO NOT RESUSCITATE Today, I reviewed her medication list and lab work results. Ventilator management by machine featheredger and reducer. Patient was started on IV Decadron. Hold off on anticoagulation for now given thrombocytopenia and diffuse bruising and ecchymosis. Continue aggressive IV fluid hydration. Wean off norepinephrine as tolerated for MAP > 65. Patient will be admitted to the ICU. Her overall prognosis is very guarded.
--- NOTE | 2021-08-26 14:34 | P.PN ---
Progress Note - Text Progress Note Date: 08/26/21 Today, I had a prolonged discussion with the patient's family at bedside including her daughter who is her DURABLE POWER OF CASE AIDE regarding goals of care and current guarded prognosis. We discussed that patient has multiple organ failure at this time and chances of survival are very slim. Patient's family understand. We discussed CODE STATUS including what to do if the patient had another cardiac arrest. Her DURABLE POWER OF CASE AIDE requested that patient would be DO NOT RESUSCITATE. We agreed to admit the patient to the ICU and continue supportive care for the next 24-48 hours and follow clinical response. Patient's family may consider withdrawal of care and eventually. time > 16 minutes
[2021-08-26 14:35] LABS: Glucose,Whole Blood 109 mg/dL (75-99)
[2021-08-26] MEDS ORDERED: PIPERACILLIN-TAZOBACTAM 3.375 GM in SODIUM CHLORIDE 0.9% 100 ML IVPB SCH (16:00)
[2021-08-26 16:08] VITALS: TEMP 87.6
[2021-08-26] MEDS: IPRATROPIUM-ALBUTEROL 3 ML NEB INHALATION SCH ×3 (16:37→23:58)
[2021-08-26] MEDS ORDERED: NOREPINEPHRIN 4 MG-0.9% NS PMX 4 MG/250 ML ML IV ONE (17:26)
[2021-08-26] MEDS ORDERED: MORPHINE SULFATE 4 MG/ML SYRINGE IVP STA (17:37)
[2021-08-26] MEDS ORDERED: MORPHINE SULFATE 4 MG/ML SYRINGE IVP PRN (17:37)
[2021-08-26 19:10] VITALS: BP 86/68; PULSE 35; RESP 5
[2021-08-26] MEDS ORDERED: PANTOPRAZOLE 40 MG/10 ML VIAL IV SCH (21:00)
--- NOTE | 2021-08-27 07:09 | P.DS ---
Providers Date of admission: 08/26/21 13:12 Expected date of discharge: 08/27/21 Attending physician: Geensis Contreras Consults: 08/26/21 13:12 Consult Physician Stat Consulting Provider: Radha Monge Consult Reason/Comments: Respiratory failure return of spontaneous circulation, left pneumothorax Do you want consulting provider notified?: Already Contacted 08/26/21 14:09 Consult Physician Urgent Consulting Provider: Graham Jones Consult Reason/Comments: Encephalopathy, cardiac arrest Do you want consulting provider notified?: Yes Primary care physician: Danny Dominique MD Hospital Course: Patient before my evaluation today, please see nursing documentation for further details. Patient Condition at Discharge: Critical Plan - Discharge Summary New Discharge Prescriptions: No Action Polyethylene Glycol 3350 [Miralax] 17 gm PO DAILY@0800 Multivitamins, Thera [Multivitamin (formulary)] 1 tab PO DAILY@0800 Enoxaparin Sodium 30 mg SQ DAILY@0800 Mighty Shakes 120 ml PO BID@1200,1400 Magnesium Oxide [Mag-Ox] 400 mg PO BID@0800,1600 Docusate [Colace] 100 mg PO BID@0800,2000 Thiamine [Vitamin B-1] 100 mg PO DAILY@0800 Folic Acid 1 mg PO DAILY@0700 Cyanocobalamin (Vitamin B-12) [Vitamin B-12] 1,000 mcg PO DAILY@0800 Discharge Medication List Cyanocobalamin (Vitamin B-12) [Vitamin B-12] 1,000 mcg PO DAILY@0800 08/26/21 [History] Docusate [Colace] 100 mg PO BID@0800,2000 08/26/21 [History] Enoxaparin Sodium 30 mg SQ DAILY@0800 08/26/21 [History] Folic Acid 1 mg PO DAILY@0700 08/26/21 [History] Magnesium Oxide [Mag-Ox] 400 mg PO BID@0800,1600 08/26/21 [History] Mighty Shakes 120 ml PO BID@1200,1400 08/26/21 [History] Multivitamins, Thera [Multivitamin (formulary)] 1 tab PO DAILY@0800 08/26/21 [History] Polyethylene Glycol 3350 [Miralax] 17 gm PO DAILY@0800 08/26/21 [History] Thiamine [Vitamin B-1] 100 mg PO DAILY@0800 08/26/21 [History] Follow up Appointment(s)/Referral(s): Danny Dominique MD [Primary Care Provider] - 1-2 days Discharge Disposition: - Preliminary Cause of Preliminary Cause of : COVID-19
--- NOTE | 2021-08-31 20:59 | CDI ---
Documentation Clarification Form Mortality Review Date: 08/31/2021 08:41:26 PM From: Anabell Kemp RN, CCDS Admit Date: 08/26/2021 01:12:00 PM Patient Name: Jeannine Bolton Visit Number: [id number] Discharge Date: 08/26/2021 07:05:00 PM ATTENTION: The Clinical Documentation Specialists (CDI) and [facility] Coding Staff appreciate your assistance in clarifying documentation. Please respond to the clarification below the line at the bottom and electronically sign. The CDI & [facility] Coding staff will review the response and follow-up if needed. Please note: Queries are made part of the Legal Health Record. If you have any questions, please contact the author of this message via ITS. Dr. Genesis Contreras Malnourishment is documented in the 08/26 Pulmonary consult Additional clarification regarding the severity of malnutrition is requested. History/Risk Factors: Heavy ETOH abuse, chronic tobacco abuse, chronic pancreatitis, Acute Covid 19 Pneumonia, thrombocytopenia, hypothermia, ETOH liver cirrhosis, chronic pain, neuralgia Clinical Indicators: 08/26 Pulmonary consult: "Patient is currently intubated on a mechanical ventilator, comatose and unresponsive, looks extremely emaciated, malnourished, and she has extensive ecchymotic areas throughout her body bilaterally and the patient also has areas of skin sloughing over the chest and lower extremities bilaterally." Current BMI: 25 Insufficient energy intake: NPO status Loss of subcutaneous fat &Loss of muscle mass: "sacrum stage II, right buttocks, stage II, and pressure ulcer on the left buttocks, stage II." Fluid accumulation: "Extremities are consistent with extensive edema bilaterally along with marked diminished pulses in lower extremities and areas of wounds and face to pressure ulceration throughout the sacral and right buttocks area." Decreased hand bell person strength: Treatment: Dietary Consult: no Ordered Supplements: None ordered due to NPO Status Lab monitoring: on admission Please clarify the type of malnutrition, if known: [ ] Mild Protein-Calorie Malnutrition [ ] Moderate Protein-Calorie Malnutrition [ ] Severe Protein-Calorie Malnutrition [ ] Other condition, please specify [X ] Unable to Determine (Template Last Revised: January 2021) MTDD
== END 2021-08-26 19:05 | disposition expired | DRG 871 ==
LOC: EEVIPCON 10:52 → EC 10:52 → 2SICU 13:12
PROVIDERS: ADMIT Internal Medicine; ATTEND Internal Medicine
PROC: 5A1935Z Respiratory Ventilation, Less than 24 Consecutive Hours (ICD-10-PCS; principal; 2021-08-26)
PROC: 0BH17EZ Insertion of Endotracheal Airway into Trachea, Via Natural or Artificial Opening (ICD-10-PCS; 2021-08-26)
PROC: 3E033XZ Introduction of Vasopressor into Peripheral Vein, Percutaneous Approach (ICD-10-PCS; 2021-08-26)
PROC: 0W9930Z Drainage of Right Pleural Cavity with Drainage Device, Percutaneous Approach (ICD-10-PCS; 2021-08-26)
DX: A41.89 Other specified sepsis (principal); R40.20 Unspecified coma; J81.0 Acute pulmonary edema; J69.0 Pneumonitis due to inhalation of food and vomit; J96.01 Acute respiratory failure with hypoxia; K72.91 Hepatic failure, unspecified with coma; J12.82 Pneumonia due to coronavirus disease 2019; R65.21 Severe sepsis with septic shock; U07.1 COVID-19; G93.1 Anoxic brain damage, not elsewhere classified; D68.9 Coagulation defect, unspecified; J93.9 Pneumothorax, unspecified; K86.1 Other chronic pancreatitis; E46 Unspecified protein-calorie malnutrition; I46.8 Cardiac arrest due to other underlying condition; K70.31 Alcoholic cirrhosis of liver with ascites; L89.152 Pressure ulcer of sacral region, stage 2; L89.322 Pressure ulcer of left buttock, stage 2; L89.312 Pressure ulcer of right buttock, stage 2; D69.6 Thrombocytopenia, unspecified; Z66 Do not resuscitate; K70.9 Alcoholic liver disease, unspecified; J44.9 Chronic obstructive pulmonary disease, unspecified; I73.9 Peripheral vascular disease, unspecified; S80.11XA Contusion of right lower leg, initial encounter; F10.20 Alcohol dependence, uncomplicated; M79.2 Neuralgia and neuritis, unspecified; G89.29 Other chronic pain; E87.6 Hypokalemia; S80.12XA Contusion of left lower leg, initial encounter; R68.0 Hypothermia, not associated with low environmental temperature; T68.XXXA Hypothermia, initial encounter; Z87.891 Personal history of nicotine dependence; Z68.25 Body mass index [BMI] 25.0-25.9, adult
CPT/HCPCS: 36415; 70450; 71045; 80053; 82550; 83690; 83735; 83880; 84484; 85025; 85379; 85610; 85730; 87635; 93005; 93306; 94002; 94640